=== PATIENT | female | born 1995 | race Caucasian/White ===

== ENCOUNTER 2021-05-23 17:58 | Emergency (ER) | payer OTHER ==
[2021-05-23 20:54] LABS: BASOPHIL 0.5 % (0-2); HCT 43.4 % (37.0-47.0); HGB 14.5 g/dl (12.5-16.0); LYMPHOCYTE 29.9 % (15-48); MCHC 33.4 g/dL (32.0-36.0); MCV 89.7 fL (78.0-100.0); MONOCYTE 6.7 % (0-12); MPV 9.3 fL (6.0-9.5); NEUTROPHIL 61.5 % (41-80); NRBC 0; PLT 248 K/uL (150-400); RBC 4.84 M/uL (4.20-5.40); RDW 11.7 % (11.5-14.0); WBC 7.9 K/uL (4.0-10.5)
[2021-05-23 20:55] LABS: BILIRUBIN NEGATIVE (NEGATIVE); BLOOD TRACE-INTACT Ery/uL (NEGATIVE); CLARITY CLEAR (CLEAR); COLOR YELLOW (YELLOW); GLUCOSE (U) NORMAL (NORMAL); LEUKOCYTES NEGATIVE Leu/uL (NEGATIVE); NITRITE NEGATIVE (NEGATIVE); PROTEIN NEGATIVE (NEGATIVE); SPECIFIC GRAVITY 1.025 (1.001-1.030); UROBILINOGEN 0.2 mg/dL (0.2-1.0)
[2021-05-23 21:01] LABS: AMPHETAMINES NEGATIVE (NEGATIVE); BARBITURATES NEGATIVE (NEGATIVE); ECSTASY (MDMA) NEGATIVE (NEGATIVE); MARIJUANA (THC) NEGATIVE (NEGATIVE); METHADONE NEGATIVE (NEGATIVE); OPIATES NEGATIVE (NEGATIVE); OXYCODONE NEGATIVE (NEGATIVE)
[2021-05-23 21:04] LABS: BACTERIA 2+
[2021-05-23 21:05] LABS: URINARY RBC RARE; URINARY WBC RARE
[2021-05-23 21:11] LABS: CREATININE 0.5 mg/dL (0.51-0.95)
[2021-05-23] MEDS ORDERED: NAPROXEN500 MG PO (21:24)
[2021-05-23] MEDS ORDERED: BACLOFEN 10MG T10 MG PO (21:24)
== END 2021-05-23 21:47 | disposition home or self-care (01) ==
LOC: FER 17:58
PROVIDERS: Emergency Medicine; Nurse Practitioner Family
DX: R51.9 Headache, unspecified (principal); M54.5 Low back pain; R42 Dizziness and giddiness
CPT/HCPCS: 36415; 70450; 80048; 80305; 81001; 85025; J1100; J1885; J7030